=== PATIENT | female | born 1950 | race Caucasian/White ===

== ENCOUNTER 2018-09-24 09:19 | Inpatient (IN) ==
[2018-09-24] MEDS ORDERED: BUPIVACAINE PF 0.25% 10 ML VIAL IJ ONE (09:20)
[2018-09-24] MEDS ORDERED: LIDOCAINE 1% 20 ML VIAL SQ ONE (09:20)
--- NOTE | 2018-09-24 09:44 | Emergency Department Note ---
Upper Extremity HPI - General Chief Complaint: Extremity Injury, Upper Stated Complaint: right arm pain, unable to straighten right arm Time Seen by Provider: 09/24/18 09:42 Source: patient Mode of arrival: ambulatory Limitations: no limitations - History of Present Illness HPI Narrative: This patient has developed pain in her right elbow over the last 24 hours. He is having a lot of difficulty moving the elbow due to pain. No history of injury. She does have a history of gout. No fever chills nausea or vomiting. - Related Data Home Medications Medication Instructions Recorded Confirmed cyclobenzaprine 10 mg tablet 10 mg PO QHS tab 06/02/15 04/25/18 gabapentin 300 mg capsule 300 mg PO QDAY cap 06/02/15 04/25/18 Diclofenac Epolamine [Flector] 1 each TD Q12 08/29/17 04/25/18 ropinirole 0.25 mg tablet 0.25 mg PO TID 11/09/17 04/25/18 ropinirole 1 mg tablet 2 mg PO QHS tab 11/09/17 04/25/18 ropinirole 0.5 mg tablet 0.5 mg PO QDAY tab 04/25/18 04/25/18 Previous Rx's Medication Instructions Recorded omega-3 fatty acids 1,000 mg 1,000 mg PO BID 90 Days #180 cap 11/10/15 capsule albuterol sulfate HFA 90 90 mcg INHALATION Q4H PRN #8.5 g 02/22/16 mcg/actuation aerosol inhaler cholecalciferol (vitamin D3) 2,000 2,000 unit PO QDAY 90 Days #90 cap 09/04/16 unit capsule epinephrine 0.3 mg/0.3 mL 0.3 ml IM ONCE #1 each 12/21/16 injection, auto-injector aspirin 81 mg chewable tablet 81 mg PO ONCE #30 tab 01/11/17 silver sulfadiazine 1 % topical 1 applic TOPICAL BID 14 Days #25 g 01/11/17 cream atorvastatin 80 mg tablet 80 mg PO QHS #90 tab 03/26/18 colchicine 0.6 mg tablet 0.6 mg PO BID #30 tab 05/01/18 pantoprazole 40 mg tablet,delayed 40 mg PO QDAY #90 tab 06/14/18 release amlodipine 10 mg tablet 5 mg PO QDAY #45 tab 07/30/18 oxybutynin chloride 5 mg tablet 5 mg PO BID PRN #180 tab 07/30/18 alendronate 70 mg tablet 70 mg PO QWEEK #12 tab 08/28/18 Allergies Allergy/AdvReac Type Severity Reaction Status Date / Time Tetanus Vaccines and Toxoid Allergy Severe HIVES Verified 04/25/18 13:44 [TETANUS] codeine Allergy Unknown Anaphylaxis Verified 04/25/18 13:44 diazepam [From VALIUM] Allergy Unknown Vomiting Verified 04/25/18 13:44 influenza virus vaccine, Allergy Unknown "I GET THE Verified 04/25/18 13:44 specific FLU" [INFLUENZA VIRUS VACC,SPECIFIC] morphine Allergy Unknown Anaphylaxis Verified 04/25/18 13:44 niacin Allergy Unknown Rash Verified 04/25/18 13:44 penicillin V Allergy Unknown RASH Verified 04/25/18 13:44 BEE STING Allergy Unknown ANAPHYLAXIS Uncoded 04/25/18 13:44 Review of Systems All systems ED: reviewed and negative except as stated. Past Medical History - Past Medical History PMFSH Narrative: Medical History (Last Reviewed 07/30/17 @ 11:25 by Yimi Castro MD) Pseudogout involving multiple joints (Chronic) Allergic to bees (Chronic) Pseudogout (Chronic) Vitamin D deficiency (Chronic) Restless legs syndrome (Chronic) Peripheral neuropathy (Chronic) Osteoporosis (Chronic 08/16/13) Generalized osteoarthritis of unspecified site (Chronic 09/24/13) Migraine (Chronic) Hypertension, essential (Chronic 07/13/14) Hyperlipidemia (Chronic) Hematuria, microscopic (Chronic 04/09/14) Goiter (Chronic 04/09/14) Gastroesophageal reflux (Chronic) COPD (chronic obstructive pulmonary disease) (Chronic) Cerumen impaction (Chronic) Cerebral aneurysm (Chronic) Back spasm (Chronic) ASHD (arteriosclerotic heart disease) (Chronic) Anxiety disorder (Chronic 01/07/14) History of hysterectomy (Chronic) Cellulitis and abscess (Inactive) Cervicalgia (Inactive) Eczema (Inactive) Edema of left foot (Inactive) Family history of malignant neoplasm of breast (Inactive 08/01/13) Hip pain (Inactive) History of hysterectomy (Inactive) Injury of toe on left foot (Inactive) Insomnia (Inactive) Irritability (Inactive 01/07/14) Pain and swelling of left knee (Inactive) Tobacco abuse (Inactive) Past Surgical History (Last Reviewed 07/30/17 @ 11:25 by Yimi Castro MD) History of brain surgery (Chronic) History of eye surgery (Chronic) History of hip surgery (Chronic) History of brain surgery (Inactive) History of eye surgery (Inactive) History of hip surgery (Inactive) History of left cataract surgery (Inactive) Hx of LASIK (Inactive) Status post wrist surgery (Inactive) Family History (Last Reviewed 07/30/17 @ 11:25 by Yimi Castro MD) Mother Malignant neoplasm of breast Malignant neoplasm of colon Unknown Gout Paternal Grandfather Leukemia Brother Migraine Father Acute myocardial infarction Osteoarthritis - Social History smoking status: Current every day smoker Physical Exam The right elbow shows marked decreased range of motion due to pain. She has very minor erythema with some splotches around the elbow and just slight warmth to the elbow. This does not look like gross cellulitis of the skin around the elbow but that is more worrisome for something going on in the joint. Limitations: no limitations General appearance: alert Head: atraumatic Neurological: Present: alert Psychiatric: Present: normal affect Skin: Present: warm, dry, intact, erythema Course Vital Signs Temperature 96.9 F L 09/24/18 09:20 Pulse Rate 78 09/24/18 09:20 Respiratory Rate 20 09/24/18 09:20 Blood Pressure 122/62 09/24/18 09:20 Pulse Oximetry (%) 98 09/24/18 09:20 Temperature 96.9 F L 09/24/18 09:20 Pulse Rate 78 09/24/18 09:20 Respiratory Rate 20 09/24/18 09:20 Blood Pressure 122/62 09/24/18 09:20 Pulse Oximetry (%) 98 09/24/18 09:20 Extremity Injury, Upper - MDM Narrative Medical decision making narrative: Patient's elbow was aspirated by the radiologist of 7 cc of purulent fluid. Cell count was 87,000. She will be admitted to the hospital by Dr. Crisostomo and Dr. Mclaughlin will do surgery on her elbow later today. We will start vancomycin. - Lab Data Lab results reviewed: Yes I reviewed the patient's lab results. Result diagrams: 09/24/18 09:57 09/24/18 09:57 Lab Results 09/24/18 09/24/18 09/24/18 Range/Units 09:57 09:57 10:50 WBC 11.7 H (4.5-11.0) K/mcL RBC 4.25 (4.00-5.20) M/mcL Hgb 12.3 (12.0-15.0) g/dL Hct 38.0 (36.0-48.0) % MCV 89.3 (80.0-100.0) fL MCH 29.0 (26.0-34.0) pg MCHC 32.5 (31.0-36.0) g/dL RDW 14.0 (11.5-14.5) % Plt Count 175 (140-440) K/mcL MPV 9.3 (7.4-10.4) fL Gran % 77.1 (38.0-78.0) % Lymph % (Auto) 15.7 (15.5-49.0) % Will % (Auto) 6.3 (1.0-12.0) % Eos % (Auto) 0.6 (0.0-7.0) % Baso % (Auto) 0.3 (0.0-2.0) % Gran # 9.0 H (1.8-8.0) K/mcL Lymph # (Auto) 1.8 (1.5-4.8) K/mcL Will # (Auto) 0.7 (0.1-0.9) K/mcL Eos # (Auto) 0.1 (0.0-0.7) K/mcL Baso # (Auto) 0 (0.0-0.3) K/mcL ESR 23 H (0-20) mm/hr Sodium 141 (133-145) mmol/L Potassium 3.6 (3.3-5.1) mmol/L Chloride 105 (96-108) mmol/L Carbon Dioxide 26 (22-30) mmol/L Anion Gap 10.0 (8-16) BUN 16 (8-23) mg/dl Creatinine 0.8 (0.6-1.1) mg/dl GFR Calculation 77 Glucose 100 (70-105) mg/dL Uric Acid 6.3 (2.5-8.0) mg/dL Calcium 9.3 (8.6-10.4) mg/dl Total Bilirubin 0.5 (0.0-1.0) mg/dL AST 13 (0-37) U/l ALT 11 (0-40) U/l Alkaline Phosphatase 99 (39-117) U/L C-React Prot High Sens 44.1 H (1.0-3.0) mg/L Total Protein 7.4 (5.9-8.4) gm/dL Albumin 4.1 (3.2-5.2) gm/dL Globulin 3.3 (2.2-3.7) gm/dL Albumin/Globulin Ratio 1.2 (1.0-2.3) Fluid Crystals Ca pyrophosphate (NONE SEEN) Synovial Source Right elbow Synovial Color Pale yellow Synovial Appearance Cloudy Synovial Tot Cell Ct Not Reportable Synovial Nuc Cells 70145 /cumm Synovial Lymphocytes Not Reportable Synovial Other Cells Not Reportable Synovial Diff Comment Not Reportable Synovial Uric Acid (0.0-6.0) mg/dL 09/24/18 Range/Units 10:50 WBC (4.5-11.0) K/mcL RBC (4.00-5.20) M/mcL Hgb (12.0-15.0) g/dL Hct (36.0-48.0) % MCV (80.0-100.0) fL MCH (26.0-34.0) pg MCHC (31.0-36.0) g/dL RDW (11.5-14.5) % Plt Count (140-440) K/mcL MPV (7.4-10.4) fL Gran % (38.0-78.0) % Lymph % (Auto) (15.5-49.0) % Will % (Auto) (1.0-12.0) % Eos % (Auto) (0.0-7.0) % Baso % (Auto) (0.0-2.0) % Gran # (1.8-8.0) K/mcL Lymph # (Auto) (1.5-4.8) K/mcL Will # (Auto) (0.1-0.9) K/mcL Eos # (Auto) (0.0-0.7) K/mcL Baso # (Auto) (0.0-0.3) K/mcL ESR (0-20) mm/hr Sodium (133-145) mmol/L Potassium (3.3-5.1) mmol/L Chloride (96-108) mmol/L Carbon Dioxide (22-30) mmol/L Anion Gap (8-16) BUN (8-23) mg/dl Creatinine (0.6-1.1) mg/dl GFR Calculation Glucose (70-105) mg/dL Uric Acid (2.5-8.0) mg/dL Calcium (8.6-10.4) mg/dl Total Bilirubin (0.0-1.0) mg/dL AST (0-37) U/l ALT (0-40) U/l Alkaline Phosphatase (39-117) U/L C-React Prot High Sens (1.0-3.0) mg/L Total Protein (5.9-8.4) gm/dL Albumin (3.2-5.2) gm/dL Globulin (2.2-3.7) gm/dL Albumin/Globulin Ratio (1.0-2.3) Fluid Crystals (NONE SEEN) Synovial Source Synovial Color Synovial Appearance Synovial Tot Cell Ct Synovial Nuc Cells /cumm Synovial Lymphocytes Synovial Other Cells Synovial Diff Comment Synovial Uric Acid 5.6 (0.0-6.0) mg/dL - Radiology Data Radiology results reviewed: Yes I reviewed the patient's radiology results. Disposition Pt seen by BUSINESS CONTROLLER/PA only: No Clinical Impression: Septic joint of right elbow Disposition: Xfer As Outpt/Obs ([facility]) Condition: Fair Referrals: Casey Pete MD [Primary Care Provider] - Time of Disposition: 13:10
[2018-09-24 10:27] LABS: Basophils # (Auto) 0 K/mcL (0.0-0.3); Basophils % (Auto) 0.3 % (0.0-2.0); Eosinophils # (Auto) 0.1 K/mcL (0.0-0.7); Eosinophils % (Auto) 0.6 % (0.0-7.0); Granulocytes % (Auto) 77.1 % (38.0-78.0); Lymphocytes # (Auto) 1.8 K/mcL (1.5-4.8); Lymphocytes % (Auto) 15.7 % (15.5-49.0); Mean Cell Volume 89.3 fL (80.0-100.0); Mean Corpuscular HGB Conc 32.5 g/dL (31.0-36.0); Monocytes # (Auto) 0.7 K/mcL (0.1-0.9); Monocytes % (Auto) 6.3 % (1.0-12.0); Platelet Count 175 K/mcL (140-440); RBC 4.25 M/mcL (4.00-5.20)
--- NOTE | 2018-09-24 10:29 | XRay Report ---
CLINICAL INFORMATION: Pain with possible fluid COMPARISON: None. FINDINGS: A large effusion distends both the anterior and posterior extrasynovial fat pads. No osseous abnormalities. Mild diffuse soft tissue swelling noted IMPRESSION: Large elbow effusion. This could be posttraumatic, infectious or inflammatory arthritis. Fluoroscopic guided aspiration be performed Interpreted and Authenticated by: Shad Francois 09/24/18
[2018-09-24 10:49] LABS: ALT/SGPT 11 U/l (0-40); Albumin 4.1 gm/dL (3.2-5.2); Albumin/Globulin Ratio 1.2 (1.0-2.3); Alkaline Phosphatase 99 U/L (39-117); Blood Urea Nitrogen 16 mg/dl (8-23); Uric Acid 6.3 mg/dL (2.5-8.0)
[2018-09-24 11:00] LABS: CRP,High Sensitivity 44.1 mg/L (1.0-3.0)
[2018-09-24 11:14] LABS: Erythrocyte Sedimentation Rate 23 mm/hr (0-20)
--- NOTE | 2018-09-24 11:50 | XRay Report ---
CLINICAL INFORMATION: Acute right elbow pain with large effusion seen on accompanying plain film COMPARISON: Elbow films 09/24/2018. TECHNIQUE: The procedure and risks including possibility of bleeding and infection were explained to patient. She understood and wished to proceed. With the patient prone on fluoroscopy table, the right elbow was flexed at 90 degrees and the skin overlying the lateral radiocapitellar joint was fluoroscopic marked, prepped and locally anesthetized with 1% lidocaine using a 25-gauge needle. A 20-gauge needle was then advanced under fluoroscopic guidance into the radiocapitellar portion of the elbow joint. Approximately 7 cc of purulent fluid was aspirated and sent for requested studies. Approximately 8 cc of 0.25% bupivacaine was then injected into the elbow which immediately relieved her pain. IMPRESSION: Successful fluoroscopic guided aspiration of the elbow yielding 7 cc of purulent fluid. This was sent to laboratory for requested studies. 8 cc of 0.25% bupivacaine was injected providing immediate pain relief. Interpreted and Authenticated by: Shad Francois 09/24/18
[2018-09-24 12:42] LABS: Appearance,Synovial Fluid CLOUDY; Color,Synovial Fluid PALE YELLOW
[2018-09-24 13:08] LABS: Crystals,Body Fluid CA PYROPHOSPHATE (NONE SEEN)
[2018-09-24] MEDS ORDERED: VANCOMYCIN 1,500 MG in 0.9 % SODIUM CHLORIDE 500 ML IV ONE (13:09)
[2018-09-24 13:17] LABS: Neutrophils,Synovial Fluid 91 % (0-25); Other Cells,Synovial Fluid 9 %
--- NOTE | 2018-09-24 13:19 | Internal Med History&Physical ---
Medical - H&P: [facility] Patient information: Note initiated : 09/24/18 at 1:16 pm Service Date, if different from initiated Date: [] Patient: Carly Yadav a 67 y/o F admitted on for right arm pain, unable to straighten right arm. Chief Complaint: [] Chief complaint: rt elbow pain and swelling History of present illness: Ms. Yadav is a 67 year old F who [facility] with worsening right elbow swelling and pain that started since last evening. Patient denies any recent injury, fall. She carries a history of gout. Patient has 4 dogs and cat but denies any recent scratching or bite. The redness and swelling rapidly evolved overnight prompting her to come to the ER. Initial workup was significant for left elbow effusion on imaging. Purulent aspirate was obtained. Subsequently orthopedics was consulted for joint washout in light of septic arthritis right elbow. Hospitalist service was consulted for management of antibiotics and assist in admission. Patient will be taken directly to the OR Patient was seen postoperatively after joint washout on the medical floor. She denies active distress including chest pain shortness of breath, headache photophobia joint pain. She denies prior similar events are recurrent boils or MRSA infection. She lives with her boyfriend. Review of systems 10 point review of system was performed and is negative except for one discussed above Medical - H&P: [facility] Medical history: Pseudogout involving multiple joints (Chronic) Allergic to bees (Chronic) Pseudogout (Chronic) Knee aspirate showed calcium pyrophosphate crystals, report ws reported 107 days late. pt symptoms abated. Vitamin D deficiency (Chronic) Restless legs syndrome (Chronic) Peripheral neuropathy (Chronic) 09/09/14-Dr Hollis Osteoporosis (Chronic 08/16/13) Generalized osteoarthritis of unspecified site (Chronic 09/24/13) Migraine (Chronic) Hypertension, essential (Chronic 07/13/14) Hyperlipidemia (Chronic) Hematuria, microscopic (Chronic 04/09/14) Goiter (Chronic 04/09/14) Multinodular, tsh wnl Gastroesophageal reflux (Chronic) COPD (chronic obstructive pulmonary disease) (Chronic) Cerumen impaction (Chronic) Cerebral aneurysm (Chronic) Back spasm (Chronic) ASHD (arteriosclerotic heart disease) (Chronic) 06/07/14-Dr Hurst Anxiety disorder (Chronic 01/07/14) Cellulitis and abscess (Inactive) Left leg, DVT Scan neg, on bactrim Cervicalgia (Inactive) Eczema (Inactive) Edema of left foot (Inactive) due to cellutitis, DVT checked and is neg, Family history of malignant neoplasm of breast (Inactive 08/01/13) Hip pain (Inactive) Injury of toe on left foot (Inactive) pain management, get x ray to r/o fracture. Insomnia (Inactive) Irritability (Inactive 01/07/14) Pain and swelling of left knee (Inactive) new onsent joint effusion, check cultures, cell count, and crytals, given severe pain, we tappend the knee, the fluid was clear and mildy opaque, not turbid, hence kennalog 40mg and 2 cc lidocaine was injected in the left knee. x ray ordered Tobacco abuse (Inactive) Surgical history: History of brain surgery (Chronic) History of eye surgery (Chronic) left x 3 History of hip surgery (Chronic) right x 2 History of hysterectomy (Chronic) anuersym History of brain surgery (Inactive) 11/2010 Brain aneurysm History of eye surgery (Inactive) Left eye macular hole History of hip surgery (Inactive) 2001 Right hip History of hysterectomy (Inactive) 1985 History of left cataract surgery (Inactive) Hx of LASIK (Inactive) Status post wrist surgery (Inactive) 2010 Right wrist Pertinent family history: Mother Malignant neoplasm of breast Malignant neoplasm of colon Unknown Gout Paternal Grandfather Leukemia Brother Migraine Father Acute myocardial infarction Osteoarthritis Social history: marital status: occupational status: disabled smoking status: Current every day smoker tobacco type: cigarettes per day: 10 pack-years: 35 alcohol intake frequency: does not drink substance use type: does not use Medical - H&P: Meds Home Medications Medication Instructions Recorded Confirmed Type Alendronate Sodium 70 mg PO WEEKLY 09/24/18 09/24/18 History Aspirin [Aspirin EC] 81 mg PO DAILY 09/24/18 09/24/18 History Atorvastatin Calcium 80 mg PO QHS 09/24/18 09/24/18 History Cyclobenzaprine [Flexeril] 10 mg PO HSP PRN 09/24/18 09/24/18 History Gabapentin [Neurontin] 300 mg PO HS 09/24/18 09/24/18 History Oxybutynin Chloride [Ditropan Xl] 5 mg PO BID 09/24/18 09/24/18 History Pantoprazole Sodium [Protonix] 40 mg PO DAILY 09/24/18 09/24/18 History amLODIPine [Norvasc] 10 mg PO DAILY 09/24/18 09/24/18 History rOPINIRole [Requip] 1 mg PO .COMPLEX 09/24/18 09/24/18 History Allergies Allergy/AdvReac Type Severity Reaction Status Date / Time bee venom protein (honey bee) Allergy Severe Anaphylaxis Verified 09/24/18 16:25 codeine Allergy Severe Anaphylaxis Verified 09/24/18 16:25 morphine Allergy Severe Anaphylaxis Verified 09/24/18 16:25 niacin Allergy Mild Rash Verified 09/24/18 16:25 penicillin V Allergy Mild RASH Verified 09/24/18 16:25 Tetanus Vaccines and Toxoid Allergy Mild HIVES Verified 09/24/18 16:25 [TETANUS] diazepam [From VALIUM] AdvReac Mild Vomiting Verified 09/24/18 16:25 influenza virus vaccine, AdvReac Mild "I GET THE Verified 09/24/18 16:25 specific FLU" [INFLUENZA VIRUS VACC,SPECIFIC] Medical - H&P: Exam - Constitutional Vitals: Temp Pulse Resp BP Pulse Ox 96.9 F L 78 20 122/62 98 09/24/18 09:20 09/24/18 09:20 09/24/18 09:20 09/24/18 09:20 09/24/18 09:20 General appearance: no acute distress, thin Exam: Eye movements symmetrical Head normocephalic oral cavity dry No ear nose discharge No lymphadenopathy S1-S2 regular rhythm no murmur chest clear to auscultation bilaterally Abdomen soft nontender Right upper extremity elbow redness and swelling now postoperative dressing Lower extremity no cyanosis clubbing Skin no suspicious lesion Psych alert cooperative Neuro nonfocal Medical - H&P: Reslt - Labs CBC & Chem 7: 09/24/18 09:57 09/24/18 09:57 Labs: Short CBC 09/24/18 Range/Units 09:57 WBC 11.7 H (4.5-11.0) K/mcL Hgb 12.3 (12.0-15.0) g/dL Hct 38.0 (36.0-48.0) % Plt Count 175 (140-440) K/mcL BMP 09/24/18 09:57 Sodium 141 Potassium 3.6 Chloride 105 Carbon Dioxide 26 BUN 16 Creatinine 0.8 Glucose 100 Calcium 9.3 Liver Function 09/24/18 Range/Units 09:57 Total Bilirubin 0.5 (0.0-1.0) mg/dL AST 13 (0-37) U/l ALT 11 (0-40) U/l Alkaline Phosphatase 99 (39-117) U/L Albumin 4.1 (3.2-5.2) gm/dL Medical - H&P: A/P (1) Septic joint of right elbow Current visit: Yes Status: Acute * Septic arthritis right elbow-status post aspiration/joint washout. Await Gram stain cultures and crystal evaluation. Started on empiric Rocephin/vancomycin . Infectious disease consulted. * Pain management cont as needed opioids * Restless leg syndrome continue home dose ropinirole * Neuropathy on gabapentin * History of gout * Full code * Prophylaxis heparin Plan * Review post joint washout * Await crystals and culture Gram stain * Empiric antibiotic coverage on Rocephin/vancomycin until further recommendations from ID * Prior medical condition management as above * Inpatient admission
--- NOTE | 2018-09-24 13:53 | XRay Report ---
CLINICAL INFORMATION: pre op COMPARISON: None. FINDINGS: The heart size, mediastinum and pulmonary vessels are unremarkable. Stable COPD and and lingular scarring noted. No infiltrates or other new pulmonary abnormalities. There are no effusions. The bones and soft tissues are within normal limits. IMPRESSION: COPD - no acute disease. Interpreted and Authenticated by: Shad Francois 09/24/18
[2018-09-24] MEDS: LACTATED RINGERS 1,000 ML IV SCH ×2 (14:27→20:10)
[2018-09-24] MEDS ORDERED: ONDANSETRON 4 MG/2 ML VIAL IV ONE (15:20)
[2018-09-24] MEDS ORDERED: GLYCOPYRROLATE 0.2 MG/ML VIAL IV ONE (15:20)
[2018-09-24] MEDS ORDERED: MIDAZOLAM 2 MG/2 ML VIAL IV ONE (15:20)
[2018-09-24] MEDS ORDERED: LIDOCAINE HCL/PF 100 MG/5 ML SYRINGE IV ONE (15:20)
[2018-09-24] MEDS ORDERED: fentaNYL 100 MCG/2 ML VIAL IV ONE (15:20)
[2018-09-24] MEDS ORDERED: KETAMINE 100 MG/ML ML IV ONE (15:20)
[2018-09-24] MEDS ORDERED: PROPOFOL 200 MG/20 ML VIAL IV ONE (15:20)
--- NOTE | 2018-09-24 15:52 | Brief Operative Note ---
Date of procedure: 09/24/18 Pre-op diagnosis: Septic right elbow Post-op diagnosis: same Procedure: Arthrotomy with irrigation and drainage of right elbow septic joint Grafts/Implants: No Anesthesia: GLMA Findings: large cloudy joint effusion Complications: none Surgeon: Myron Mclaughlin Roofer Helper Vinyl Coating: Ross Jain Estimated blood loss (cc): 5 Specimens Removed/Pathology: other (joint fluid cx and sens) Condition: stable Disposition: PACU
[2018-09-24] MEDS ORDERED: oxyCODONE HCL 5 MG TABLET PO PRN (15:55)
[2018-09-24] MEDS ORDERED: PROMETHAZINE 25 MG/ML VIAL IM PRN (16:16)
[2018-09-24] MEDS ORDERED: MEPERIDINE 50 MG/ML INJECTION IM PRN (16:16)
[2018-09-24] MEDS ORDERED: IPRATROPIUM/ALBUTEROL 3 ML AMPUL.NEB NEB PRN (16:16)
[2018-09-24] MEDS ORDERED: MEPERIDINE 25 MG/ML SYRINGE IV PRN (16:16)
[2018-09-24] MEDS ORDERED: fentaNYL 100 MCG/2 ML VIAL IV PRN (16:16)
--- NOTE | 2018-09-24 16:24 | Operative Note ---
DATE OF OPERATION: 09/24/2018 PREOPERATIVE DIAGNOSIS: Septic right elbow joint. POSTOPERATIVE DIAGNOSIS: Septic right elbow joint. PROCEDURE PERFORMED: Arthrotomy with irrigation and drainage of right septic elbow joint. SURGEON: Myron Mclaughlin M.D. TELECOMMUNICATIONS OPERATOR: Betito Jain PA-C. ANESTHESIA: General. DRAINS: A small Elneo. SPECIMENS: Culture and sensitivity. COMPLICATIONS: None. POSTOPERATIVE CONDITION: Stable. INDICATIONS FOR SURGERY: This is a 67-year-old female who yesterday began having rapidly increasing right elbow pain and limited movement. She presented today to the ER with elevated white blood cell count and redness. The elbow was aspirated which showed a white blood cell count of 87,000 making this highly suspicious for septic elbow joint. FINDINGS AT SURGERY: There was cloudy fluid, copious amounts in the joint consistent with a septic arthritis. PROCEDURE IN DETAIL: The patient had been seen preoperatively and informed consent had been obtained after discussion of risks and benefits of surgery. Risks including, but not limited to, bleeding; continued infection; injury to nerves, blood vessels, and other surrounding structures; anesthetic risks; incomplete or no resolution of symptoms; possibility of needing further washouts or surgery; possibly also developing stiffness and post-infectious arthritis. She understood these risks and wished to proceed. Correct operative site was marked in preop holding and patient was taken to the operating room. General anesthesia induced. The right upper extremity was carefully prepped and draped in normal sterile fashion. Time out was performed verifying patient name, operative site, and plan. Esmarch was used to exsanguinate the extremity and tourniquet was inflated to 250 mmHg. A lateral Mejia approach was used to the elbow with a 15 blade scalpel, starting lateral epicondyle and extending obliquely down towards the proximal ulna. She was taken through skin and subcutaneous tissue. Hemostasis obtained with Bovie cautery. We then identified the interval between the anconeus and the extensor carpi ulnaris and incised with a 15 blade scalpel. Upon entering the joint, we immediately noted a large egress of cloudy fluid. Culture swab was used to take culture and sensitivity. We then moved the elbow, flexing and extending and supinating and pronating and continued to express out a large amount of fluid. Once it seemed the fluid stopped coming out, we then used pulse lavage and irrigated, flexing and extending the elbow and supinating and pronating while irrigating. We did a couple of liters, and then a small Eleno drain was placed into the joint. We then used an 0 Monocryl interrupted [id number] to close the capsule, carefully making sure we did not entrap the Mcgee with the stitches, and then used a 3-0 Monocryl for subcutaneous and a 4-0 nylon for skin. Xeroform and sterile dressing were applied. The patient was then awakened, extubated, and transferred to recovery in stable condition. LOREN:lourdes Job ID: [id number] Doc ID: [id number] Myron Mclaughlin MD
[2018-09-24] MEDS ORDERED: LACTATED RINGERS 1,000 ML IV SCH (16:30)
--- NOTE | 2018-09-24 16:39 | Consultation ---
DATE OF CONSULTATION: 09/24/2018 REQUESTING PHYSICIAN: Erik De Paz M.D. CONSULTING PHYSICIAN: Myron Mclaughlin M.D. CHIEF COMPLAINT: Right elbow pain and swelling. REASON FOR CONSULTATION: Possible septic elbow. HISTORY OF PRESENT ILLNESS: This is a 67-year-old female who started having pain in her right elbow about 24 hours ago. She had no injury and no other febrile illness. She had rapidly worsening pain as well as visible redness and limited range of motion. She presented to the ER today with these symptoms. She was noted to have elevated white blood cell count in her blood of 11.7. Interventional Radiology then aspirated the elbow and sent the fluid off which showed a white blood cell count in the fluid of 87,000 as well as elevated inflammatory markers. I was then consulted for possible septic elbow. PAST MEDICAL HISTORY: Appears to be quite extensive, including pseudogout, restless leg, hypertension, gastroesophageal reflux, COPD, anxiety. PAST SURGICAL HISTORY: Brain surgery, eye surgery x3, hip surgery x2, hysterectomy, brain aneurysm surgery, left hip surgery, cataract surgery and a right wrist surgery. MEDICATIONS: Her medication list is extensive. Please see the chart for complete list. ALLERGIES: Numerous, includin. CODEINE. 2. VALIUM. 3. MORPHINE. 4. NIACIN. 5. PENICILLIN. 6. BEE STINGS. SOCIAL HISTORY: She is and disabled. She smokes every day, sounds like ten cigarettes a day for 35 years. Denies alcohol use. FAMILY HISTORY: Positive for mother with colon and breast cancer. Father with heart disease and arthritis. REVIEW OF SYSTEMS: Negative for fever or chills, chest pain, shortness of breath, loss of consciousness, bloody stool or urine. PHYSICAL EXAMINATION: VITAL SIGNS ON ADMISSION: Temperature 96.9, pulse 78, respirations 20, blood pressure 122/62, pulse 98. GENERAL: She appears her stated age in no acute distress. She is oriented to person, place. Mood and affect are reasonably appropriate. EXTREMITIES: Her left elbow is normal to inspection, range of motion, stability and strength. Right elbow shows obvious swelling and erythema on skin exam. She has limited range of motion secondary to pain. She has normal stability. Strength is 4/5. Radial pulse is 2+. Sensation to light touch is grossly intact. LABORATORY DATA: Laboratory values again showed a white blood cell count 11.7. ESR 23. IMPRESSION: Probable septic right elbow joint in a 67-year-old female. However, differential diagnosis to include pseudogout as well. PLAN: Due to the very high elevation of her cell count in the joint fluid and her elevated white blood cell count and limited motion and redness, I think this is most likely a septic arthritis. Due to the risk of post-infectious arthritis with septic joint, I recommend urgent irrigation and debridement of the septic elbow joint. Risks include, but not limited to, bleeding; infection; injury to nerves, blood vessels, other surrounding structures; anesthetic risks; incomplete or no resolution of symptoms; possibility of needing further washouts or surgery; possibility of stiffness, pain and post-infectious arthritis. She understands and wishes to proceed. BJHyacinth:lourdes Job ID: [id number] Doc ID: [id number] Myron Mclaughlin MD
[2018-09-24] MEDS ORDERED: ONDANSETRON 4 MG/2 ML VIAL IV PRN (17:30)
[2018-09-24] MEDS ORDERED: cefTRIAXone 2 GM in DEXTROSE 5% IN WATER 50 ML IV SCH (17:30)
[2018-09-24] MEDS ORDERED: CYCLOBENZAPRINE 10 MG TABLET PO PRN (17:30)
[2018-09-24] MEDS ORDERED: ACETAMINOPHEN 1,000 MG/100 ML BOTTLE IV PRN (17:30)
[2018-09-24] MEDS ORDERED: POTASSIUM CHLORIDE 20 MEQ PACKET PO PRN (17:30)
[2018-09-24] MEDS ORDERED: HYDROmorphone 2 MG/ML VIAL IV PRN (17:30)
[2018-09-24] MEDS ORDERED: traZODone HCL 50 MG TABLET PO PRN (17:30)
[2018-09-24] MEDS ORDERED: VANCOMYCIN PER PHARMACY IV SCH (17:30)
[2018-09-24 18:43] LABS: C-Reactive Protein 3.9 mg/dl (0.0-0.8)
[2018-09-24] MEDS ORDERED: VANCOMYCIN 1,000 MG in 0.9 % SODIUM CHLORIDE 250 ML IV SCH (19:00)
[2018-09-24] MEDS: 0.9 % SODIUM CHLORIDE 1,000 ML IV SCH ×2 (20:09→21:55)
[2018-09-24] MEDS: 0.9 % SODIUM CHLORIDE 10 ML SYRINGE IV SCH ×2 (20:09→21:00)
[2018-09-24] MEDS: ATORVASTATIN 20 MG TABLET PO SCH (20:58)
[2018-09-24] MEDS: SENNOSIDES/DOCUSATE SODIUM 1 TAB TABLET PO SCH (20:58)
[2018-09-24] MEDS: DOCUSATE SODIUM 100 MG CAPSULE PO SCH (20:58)
[2018-09-24] MEDS: rOPINIRole 1 MG TABLET PO SCH (20:59)
[2018-09-24] MEDS: oxyCODONE HCL 5 MG TABLET PO PRN (20:59)
[2018-09-24] MEDS: GABAPENTIN 300 MG CAPSULE PO SCH (20:59)
[2018-09-24] MEDS: OXYBUTYNIN CHLORIDE 5 MG TAB.XL.24H PO SCH (20:59)
[2018-09-24] MEDS: ceFAZolin 1 GM VIAL IV SCH (21:00)
[2018-09-24] MEDS: ACETAMINOPHEN 325 MG TABLET PO PRN (21:58)
[2018-09-25] MEDS: ACETAMINOPHEN 325 MG TABLET PO PRN ×4 (02:11→18:40)
[2018-09-25] MEDS: oxyCODONE HCL 5 MG TABLET PO PRN ×4 (02:11→18:40)
[2018-09-25] MEDS: 0.9 % SODIUM CHLORIDE 10 ML SYRINGE IV SCH ×3 (05:55→21:36)
[2018-09-25] MEDS: ceFAZolin 1 GM VIAL IV SCH ×3 (05:55→21:28)
[2018-09-25 06:24] LABS: Mean Cell Volume 89.6 fL (80.0-100.0); Mean Corpuscular HGB Conc 32.7 g/dL (31.0-36.0); Platelet Count 147 K/mcL (140-440); RBC 3.73 M/mcL (4.00-5.20); Red Cell Distribution Width 14.1 % (11.5-14.5)
[2018-09-25 06:48] LABS: ALT/SGPT 8 U/l (0-40); Albumin 3.1 gm/dL (3.2-5.2); Albumin/Globulin Ratio 1.1 (1.0-2.3); Alkaline Phosphatase 77 U/L (39-117); Bilirubin,Direct < 0.2 mg/dL (0.0-0.3); Blood Urea Nitrogen 7 mg/dl (8-23); C-Reactive Protein 4.5 mg/dl (0.0-0.8); Gamma Glutamyl Transpeptidase 18 U/L (5-36); Uric Acid 4.5 mg/dL (2.5-8.0)
[2018-09-25] MEDS: PANTOPRAZOLE 40 MG TABLET PO SCH (07:10)
[2018-09-25 07:36] LABS: Erythrocyte Sedimentation Rate 21 mm/hr (0-20)
--- NOTE | 2018-09-25 07:38 | Orthopedic Progress Note ---
Orthopedics - Auxillary Note - Subjective Patient Information: Note initiated : 09/25/18 at 7:36 am Service Date, if different from initiated Date: [] Patient: Carly Yadav 67 y/o F admitted on 09/24/18 for right arm pain, unable to straighten right arm. Chief Complaint: Swollen hand, otherwise doing well. bandages c/d/i nvi-distal Vital Signs Temp Pulse Pulse Resp BP BP Pulse Ox 09/25/18 03:20 98.3 F 74 14 130/68 95 09/24/18 23:49 98.3 F 72 14 124/64 94 09/24/18 20:57 98.2 F 67 16 141/75 100 09/24/18 20:32 66 135/70 100 09/24/18 18:24 72 120/62 97 09/24/18 18:01 83 136/86 89 L 09/24/18 17:32 66 140/62 94 09/24/18 17:21 68 153/69 95 09/24/18 17:03 74 139/70 95 09/24/18 16:53 97.5 F 82 16 166/84 100 09/24/18 16:38 97.8 F 75 16 161/73 100 09/24/18 16:23 97.6 F 77 17 136/70 100 09/24/18 16:18 81 14 132/64 100 09/24/18 16:13 81 13 128/62 100 09/24/18 16:08 98.1 F 85 13 113/59 100 09/24/18 13:54 97.9 F 65 20 125/68 100 09/24/18 09:20 96.9 F L 78 20 122/62 98 Intake and Output 09/24/18 09/25/18 09/25/18 21:59 05:59 13:59 Intake Total 1590 550 Output Total 1253 450 Balance 337 100 Intake: IV 750 Lactated Ringers 1,000 ml @ 20 750 mls/hr IV .Q24H [facility] Rx#: [id number] Oral 840 550 Output: Void Amount 1250 450 Estimated Blood Loss 3 Other: Meal Dinner Percent of Meal Consumed 50% Feeding Ability Independent Urine Appearance Clear Urine Color Straw Urine Odor Normal Weight 127 lb Laboratory Results - last 24 hr 09/24/18 09/24/18 09/24/18 09:57 09:57 10:50 WBC 11.7 H RBC 4.25 Hgb 12.3 Hct 38.0 MCV 89.3 MCH 29.0 MCHC 32.5 RDW 14.0 Plt Count 175 MPV 9.3 Gran % 77.1 Lymph % (Auto) 15.7 [place] % (Auto) 6.3 Eos % (Auto) 0.6 Baso % (Auto) 0.3 Gran # 9.0 H Lymph # (Auto) 1.8 [place] # (Auto) 0.7 Eos # (Auto) 0.1 Baso # (Auto) 0 Band Neutrophils % ESR 23 H Sodium 141 Potassium 3.6 Chloride 105 Carbon Dioxide 26 Anion Gap 10.0 BUN 16 Creatinine 0.8 GFR Calculation 77 Glucose 100 Uric Acid 6.3 Calcium 9.3 Phosphorus Magnesium Total Bilirubin 0.5 Direct Bilirubin GGT AST 13 ALT 11 Alkaline Phosphatase 99 Lactate Dehydrogenase C-Reactive Protein C-React Prot High Sens 44.1 H Total Protein 7.4 Albumin 4.1 Globulin 3.3 Albumin/Globulin Ratio 1.2 Triglycerides Fluid Crystals Ca pyrophosphate Synovial Source Right elbow Synovial Color Pale yellow Synovial Appearance Cloudy Synovial Tot Cell Ct 100 Synovial Nuc Cells 12170 Synovial Neutrophils 91 H Synovial Lymphocytes Not Reportable Synovial Other Cells 9 Synovial Diff Comment Not Reportable Synovial Uric Acid 09/24/18 09/24/18 09/24/18 10:50 10:50 16:10 WBC RBC Hgb Hct MCV MCH MCHC RDW Plt Count MPV Gran % Lymph % (Auto) [place] % (Auto) Eos % (Auto) Baso % (Auto) Gran # Lymph # (Auto) [place] # (Auto) Eos # (Auto) Baso # (Auto) Band Neutrophils % ESR Sodium Potassium Chloride Carbon Dioxide Anion Gap BUN Creatinine GFR Calculation Glucose Uric Acid Calcium Phosphorus Magnesium Total Bilirubin Direct Bilirubin GGT AST ALT Alkaline Phosphatase Lactate Dehydrogenase C-Reactive Protein C-React Prot High Sens Total Protein Albumin Globulin Albumin/Globulin Ratio Triglycerides Fluid Crystals TNP Not Reportable Synovial Source Synovial Color Synovial Appearance Synovial Tot Cell Ct Synovial Nuc Cells Synovial Neutrophils Synovial Lymphocytes Synovial Other Cells Synovial Diff Comment Synovial Uric Acid 5.6 09/24/18 09/25/18 09/25/18 17:50 05:05 05:05 WBC 11.1 H RBC 3.73 L Hgb 10.9 L Hct 33.4 L MCV 89.6 MCH 29.3 MCHC 32.7 RDW 14.1 Plt Count 147 MPV 9.8 Gran % Lymph % (Auto) [place] % (Auto) Eos % (Auto) Baso % (Auto) Gran # Lymph # (Auto) [place] # (Auto) Eos # (Auto) Baso # (Auto) Band Neutrophils % Not Reportable ESR Sodium 139 Potassium 3.5 Chloride 107 Carbon Dioxide 20 L Anion Gap 12.0 BUN 7 L Creatinine 0.7 GFR Calculation 90 Glucose 104 Uric Acid 4.5 Calcium 8.1 L Phosphorus 2.5 L Magnesium 1.6 Total Bilirubin 0.5 Direct Bilirubin < 0.2 GGT 18 AST 14 ALT 8 Alkaline Phosphatase 77 Lactate Dehydrogenase 201 C-Reactive Protein 3.9 H 4.5 H C-React Prot High Sens Total Protein 6.0 Albumin 3.1 L Globulin 2.9 Albumin/Globulin Ratio 1.1 Triglycerides 65 Fluid Crystals Synovial Source Synovial Color Synovial Appearance Synovial Tot Cell Ct Synovial Nuc Cells Synovial Neutrophils Synovial Lymphocytes Synovial Other Cells Synovial Diff Comment Synovial Uric Acid s/p R elbow I&D-stable Pt okay to discharge per ortho once cleared by Hospitalist and appropriate abx started. f/u at [facility] in 2 weeks. Daily dry dressing changes. Non-weightbearing on the R UE.
[2018-09-25] MEDS: rOPINIRole 1 MG TABLET PO SCH ×3 (08:27→21:22)
[2018-09-25] MEDS: DOCUSATE SODIUM 100 MG CAPSULE PO SCH ×2 (08:27→21:22)
[2018-09-25] MEDS: ASPIRIN 81 MG TAB.CHEW PO SCH (08:28)
[2018-09-25] MEDS: OXYBUTYNIN CHLORIDE 5 MG TAB.XL.24H PO SCH ×2 (08:28→21:22)
[2018-09-25] MEDS: MULTIVIT,THER IRON,CA,FA & MIN 1 TABLET PO SCH (08:28)
[2018-09-25] MEDS: amLODIPine 10 MG TABLET PO SCH (08:28)
[2018-09-25 09:16] LABS: Band Neutrophils % 2 % (0-10); Lymphocytes % 8 % (15-49); Monocytes % (Manual) 3 % (1-12); Platelet Estimate NORMAL (NORMAL); RBC Morphology NORMAL (NORMAL); Segmented Neutrophils % 87 % (38-78)
--- NOTE | 2018-09-25 09:40 | Internal Med Progress Note ---
Medical - PN: Subj Patient information: Note initiated : 09/25/18 at 9:37 am Service Date, if different from initiated Date: [] Patient: Carly Yadav a 67 y/o F admitted on 09/24/18 for right arm pain, unable to straighten right arm. Chief Complaint: [] Interval history: Ms. Yadav is a 67 year old F who presents to [place] ER with worsening right elbow swelling and pain that started since last evening. Patient denies any recent injury, fall. She carries a history of gout. Patient has 4 dogs and cat but denies any recent scratching or bite. The redness and swelling rapidly evolved overnight prompting her to come to the ER. Initial workup was significant for left elbow effusion on imaging. Purulent aspirate was obtained. Subsequently orthopedics was consulted for joint washout in light of septic arthritis right elbow. Hospitalist service was consulted for management of antibiotics and assist in admission. Patient will be taken directly to the OR Patient was seen postoperatively after joint washout on the medical floor. She denies active distress including chest pain shortness of breath, headache photophobia joint pain. She denies prior similar events are recurrent boils or MRSA infection. She lives with her boyfriend. 09/25-patient doing well postoperatively. Right elbow dressing in place. No overnight events including fever chills or worsening pain. Microbiology cultures negative so far. On empiric vancomycin/cefazolin as per orthopedics. Await ID recommendations. - Constitutional Vitals: Vital Signs Temp Pulse Resp BP Pulse Ox 98.6 F 61 14 97/60 94 09/25/18 07:57 09/25/18 07:57 09/25/18 07:57 09/25/18 07:57 09/25/18 07:57 Period Temp Pulse Resp BP Sys/Alexander Pulse Ox Last 24 Hr 97.5 F-98.6 F 61-85 13-20 97-166/59-86 89-100 Intake and Output 09/24/18 09/25/18 09/25/18 21:59 05:59 13:59 Intake Total 1590 550 240 Output Total 1253 450 Balance 337 100 240 Weight 127 lb Intake & Output: Intake & Output 09/24/18 09/25/18 09/25/18 21:59 05:59 13:59 Intake Total 1590 550 240 Output Total 1253 450 Balance 337 100 240 Weight 127 lb Intake: IV 750 Lactated Ringers 1,000 ml @ 20 750 mls/hr IV .Q24H [facility] Rx#: [id number] Oral 840 550 240 Output: Void Amount 1250 450 Estimated Blood Loss 3 Other: Meal Dinner Percent of Meal Consumed 50% Feeding Ability Independent Urine Appearance Clear Urine Color Straw Urine Odor Normal General appearance: no acute distress Exam: Alert oriented Nonlabored breathing, no anxiety Right elbow dressing arm in sling Nondistended abdomen Medical - PN: Obj Da - Labs CBC & Chem 7: 09/25/18 05:05 09/25/18 05:05 Labs: Abnormal Lab Results 09/25/18 09/25/18 09/24/18 05:05 05:05 17:50 WBC 11.1 H RBC 3.73 L Hgb 10.9 L Hct 33.4 L Gran # Seg Neutrophils % 87 H Lymphocytes % 8 L ESR 21 H Carbon Dioxide 20 L BUN 7 L Calcium 8.1 L Phosphorus 2.5 L C-Reactive Protein 4.5 H 3.9 H C-React Prot High Sens Albumin 3.1 L Synovial Neutrophils 09/24/18 09/24/18 09/24/18 10:50 09:57 09:57 WBC 11.7 H RBC Hgb Hct Gran # 9.0 H Seg Neutrophils % Lymphocytes % ESR 23 H Carbon Dioxide BUN Calcium Phosphorus C-Reactive Protein C-React Prot High Sens 44.1 H Albumin Synovial Neutrophils 91 H Meds: Medications Acetaminophen (Tylenol) 650 mg PO Q4-6HP PRN PRN Reason: PAIN/FEVER > 101 Last Admin: 09/25/18 05:52 Dose: 650 mg Documented by: Alendronate Sodium (Fosamax) 70 mg PO WEEKLY [facility] Amlodipine Besylate (Norvasc) 10 mg PO DAILY [facility] Last Admin: 09/25/18 08:28 Dose: 10 mg Documented by: Aspirin (Aspirin) 81 mg PO DAILY [facility] Last Admin: 09/25/18 08:28 Dose: 81 mg Documented by: Atorvastatin Calcium (Lipitor) 80 mg PO [facility] Last Admin: 09/24/18 20:58 Dose: 80 mg Documented by: Cefazolin Sodium (Ancef) 2 gm IV Q8H [facility] Cyclobenzaprine HCl (Flexeril) 10 mg PO HSP PRN PRN Reason: Back Pain Last Admin: 09/24/18 20:58 Dose: 10 mg Documented by: Docusate Sodium (Colace) 100 mg PO BID [facility] Last Admin: 09/25/18 08:27 Dose: 100 mg Documented by: Gabapentin (Neurontin) 300 mg PO HS [facility] Last Admin: 09/24/18 20:59 Dose: 300 mg Documented by: Heparin Sodium (Porcine) (Heparin) 5,000 unit SQ Q12 [facility] Hydromorphone HCl (Dilaudid) 0 mg IV Q4HP PRN PRN Reason: PAIN LEVEL > 6 Sodium Chloride (Sodium Chloride 0.9%) 1,000 mls @ 50 mls/hr IV .Q20H [facility] Stop: 09/27/18 05:29 Last Admin: 09/24/18 21:55 Dose: 50 mls/hr Documented by: Acetaminophen (Ofirmev) 1,000 mg in 100 mls @ 200 mls/hr IV Q6HP PRN PRN Reason: PAIN/FEVER > 101 Vancomycin HCl 1,000 mg/ (Sodium Chloride) 250 mls @ 250 mls/hr IV Q24H [facility] Iron Carb/Multivit/[place]/Folic Acid (Multivitamin W/Minerals) 1 tab PO DAILY [facility] Last Admin: 09/25/18 08:28 Dose: 1 tab Documented by: Ondansetron HCl (Zofran) 4 mg IV Q4-6HP PRN PRN Reason: Nausea And Vomiting Oxybutynin Chloride (Ditropan Xl) 5 mg PO BID [facility] Last Admin: 09/25/18 08:28 Dose: 5 mg Documented by: Oxycodone HCl (Roxicodone) 5 mg PO Q4HP PRN PRN Reason: Pain Last Admin: 09/25/18 05:52 Dose: 5 mg Documented by: Pantoprazole Sodium (Protonix) 40 mg PO QAMAC [facility] Last Admin: 09/25/18 07:10 Dose: 40 mg Documented by: Potassium Chloride (Klor-Con) 40 meq PO DAILYP PRN PRN Reason: K+ < 3.5 Ropinirole HCl (Requip) 1 mg PO BID@0800,1200 [facility] Last Admin: 09/25/18 08:27 Dose: 1 mg Documented by: Ropinirole HCl (Requip) 2 mg PO HS [facility] Last Admin: 09/24/18 20:59 Dose: 2 mg Documented by: Senna/Docusate Sodium (Senna Plus Tablet) 1 tab PO HS [facility] Last Admin: 09/24/18 20:58 Dose: 1 tab Documented by: Sodium Chloride (Saline Flush) 10 ml IV Q8 [facility] Last Admin: 09/25/18 05:55 Dose: Not Given Documented by: Trazodone HCl (Desyrel) 50 mg PO HSP PRN PRN Reason: Insomnia Vancomycin HCl (Vancomycin Per Pharmacy) 1 order IV UD [facility] Medical - PN: A/P - Time Spent With Patient Total time spent is greater than 50% in coordination of care (as documented) at patient's floor/unit and/or counseling patient: 15 - 24 minutes (1) Septic joint of right elbow Status: Acute Assessment and plan: * Septic arthritis right elbow-status post aspiration/joint washout. Await Gram stain cultures and crystal evaluation. Continue vancomycin/cefazolin. ID consulted * Pain management stable on as needed opioids * Restless leg syndrome continue - ropinirole * Neuropathy stable on gabapentin * History of gout * Full code * Prophylaxis heparin Plan * Await microbiology/crystal * Antibiotic coverage for minimum 4-6 weeks * Prior medical condition management as above Current Visit: Yes Medical - PN: Qual - Stroke Symptom Onset Unknown: No - VTE Deep Vein Thrombosis/Pulmonary Embolism Present on Admission: No
[2018-09-25] MEDS ORDERED: VANCOMYCIN 1,000 MG in 0.9 % SODIUM CHLORIDE 250 ML IV SCH (10:00)
--- NOTE | 2018-09-25 14:21 | Infectious Disease Consult ---
History of Present Illness Patient information: Note initiated : 09/25/18 at 1:50 pm Service Date, if different from initiated Date: [] Patient: Carly Yadav 67 y/o F admitted on 09/24/18 for right arm pain, unable to straighten right arm. Chief Complaint: [] Consult date: 09/25/18 Requesting Physician: Cisco Will Reason for Consult: Right elbow septic arthritis Chief complaint: My elbow hurts History of present illness: 67 year old lady with PMHx of: - Restless leg syn - chronic smoking - COPD - brain aneurysm Gout Pt was admitted 09/24/18 with c/o sudden onset right elbow pain which started in the evening on 09/23/18 when she was taking her dogs out for a walk. Given the intensity of pain and swelling, she came to the ER. She denied any fever, chills, bites or scratches from her pets. At admission patient was afebrile, heart rate of 78, blood pressure 122/62, satting well on room air. WBC count was elevated at 11.7, on aspiration of synovial fluid from elbow joint there was about 7 cc of pus with a cell count of around 87,000 with 91% neutrophils. X-ray of the elbow significant for left elbow effusion on imaging. Patient was started on IV vancomycin and admitted to the hospital. Subsequently she underwent aspiration, incision and debridement of the left elbow joint by Dr. Mclaughlin [orthopedics] with operative cultures sent. In addition 2 sets of blood cultures were also sent and ceftriaxone was added to IV vancomycin. Patient's postop course was uneventful. At the time of visit today she reports pain in the elbow being variable, denies any fever, chills, diarrhea, nausea, vomiting. She expressed strong desire to get discharged and get well so that she could do bowling in next few weeks. Review of Systems All systems PM: reviewed and no additional remarkable complaints except as stated Past History Past medical history: See HPI Past family history: Lung cancer in sister Stomach cancer in mother Past social history: Lives by herself in [facility] Smoker On disability Medications and Allergies Home Medications Medication Instructions Recorded Confirmed Type Alendronate Sodium 70 mg PO WEEKLY 09/24/18 09/24/18 History Aspirin [Aspirin EC] 81 mg PO DAILY 09/24/18 09/24/18 History Atorvastatin Calcium 80 mg PO QHS 09/24/18 09/24/18 History Cyclobenzaprine [Flexeril] 10 mg PO HSP PRN 09/24/18 09/24/18 History Gabapentin [Neurontin] 300 mg PO HS 09/24/18 09/24/18 History [place]-3/Dha/Epa/Fish Oil [Fish Oil 1 cap PO DAILY 09/24/18 09/24/18 History 1,000 mg Softgel] Oxybutynin Chloride [Ditropan Xl] 5 mg PO BID 09/24/18 09/24/18 History Pantoprazole Sodium [Protonix] 40 mg PO DAILY 09/24/18 09/24/18 History Vitamin D3 2,000 unit PO DAILY 09/24/18 09/24/18 History amLODIPine [Norvasc] 10 mg PO HS 09/24/18 09/24/18 History rOPINIRole [Requip] 1 mg PO .COMPLEX 09/24/18 09/24/18 History Allergies Allergy/AdvReac Type Severity Reaction Status Date / Time bee venom protein (honey bee) Allergy Severe Anaphylaxis Verified 09/24/18 16:25 codeine Allergy Severe Anaphylaxis Verified 09/24/18 16:25 morphine Allergy Severe Anaphylaxis Verified 09/24/18 16:25 niacin Allergy Mild Rash Verified 09/24/18 16:25 penicillin V Allergy Mild RASH Verified 09/24/18 16:25 Tetanus Vaccines and Toxoid Allergy Mild HIVES Verified 09/24/18 16:25 [TETANUS] diazepam [From VALIUM] AdvReac Mild Vomiting Verified 09/24/18 16:25 influenza virus vaccine, AdvReac Mild "I GET THE Verified 09/24/18 16:25 specific FLU" [INFLUENZA VIRUS VACC,SPECIFIC] Physical Examination Vital signs: Temp Pulse Resp BP Pulse Ox 36.4 C 61 14 107/55 96 09/25/18 11:03 09/25/18 07:57 09/25/18 11:03 09/25/18 11:03 09/25/18 11:03 General appearance: no acute distress Eyes pulmonary: nonicteric ENT: other (Has some blisters on hard palate) Auscultation: bilateral: wheezes Cardiovascular: regular rate and rhythm Gastrointestinal: normoactive bowel sounds Musculoskeletal: other (Right elbow joint under dressing) Results - Laboratory Findings CBC and BMP: 09/25/18 05:05 09/25/18 05:05 Abnormal lab findings: Abnormal Labs 09/24/18 09/24/18 09/24/18 09:57 09:57 10:50 WBC 11.7 H RBC Hgb Hct Gran # 9.0 H Seg Neutrophils % Lymphocytes % ESR 23 H Carbon Dioxide BUN Calcium Phosphorus C-Reactive Protein C-React Prot High Sens 44.1 H Albumin Synovial Neutrophils 91 H 09/24/18 09/25/18 09/25/18 17:50 05:05 05:05 WBC 11.1 H RBC 3.73 L Hgb 10.9 L Hct 33.4 L Gran # Seg Neutrophils % 87 H Lymphocytes % 8 L ESR 21 H Carbon Dioxide 20 L BUN 7 L Calcium 8.1 L Phosphorus 2.5 L C-Reactive Protein 3.9 H 4.5 H C-React Prot High Sens Albumin 3.1 L Synovial Neutrophils Microbiology: Microbiology 09/24/18 10:50 Synovial Fluid Gram Stain - Final 09/24/18 10:50 Synovial Fluid Body Fluid Culture - Preliminary 09/25/18 10:50 Synovial Fluid - Elbow Gram Stain - Final 09/24/18 15:54 Elbow - Right Gram Stain - Final 09/24/18 15:54 Elbow - Right Anaerobic Culture - Final 09/24/18 15:54 Elbow - Right Gram Stain - Final 09/24/18 15:54 Elbow - Right Wound Culture - Final 09/24/18 10:50 Elbow - Right Gram Stain - Final 09/24/18 10:50 Elbow - Right Gram Stain - Final 09/24/18 10:50 Elbow - Right Anaerobic Culture - Final 09/24/18 10:50 Elbow - Right Gram Stain - Final 09/24/18 10:50 Elbow - Right Wound Culture - Final Assessment and Plan - Narrative A/P Narrative: Assessment: 1. Right elbow septic arthritis: Synovial fluid cultures from initial aspiration and subsequent on surgery negative so far, Gram stain also negative 2. No sepsis 3. Chronic smoker 4. Pseudogout: Based on finding of calcium pyrophosphate crystals in the left elbow joint Recommendations: Continue IV vancomycin per pharmacy assisted dosing, and IV cefazolin 2 g every 8 hours - If blood and synovial cultures stay negative, will come up with plan to do PO Linezolid 600 mg q12 hrs x 4 weeks. Flexeril (one of the home medicine) and Trazodone (one of the inpatient medicine) interact with Linezolid and raises risk of serotonin syndrome. Pt is agreeable to stop both of them. - I will stop both Flexeril (elimination half-life of 18 hrs) and Trazodone (half-life 7 hrs) so that they are out of her system by tomorrow as it was last administered last night at 9 pm. - Pt counselled about smoking cessation but she wants to think about it for now - Pt doesnot want a flu shot despite counselling. - Pseudogout management per Ortho will follow Luis Fernando Marie MD Infectious diseases
[2018-09-25] MEDS: 0.9 % SODIUM CHLORIDE 1,000 ML IV SCH ×2 (15:54→18:34)
[2018-09-25] MEDS: HEPARIN 5,000 UNIT/ML VIAL SQ SCH (21:20)
[2018-09-25] MEDS: GABAPENTIN 300 MG CAPSULE PO SCH (21:22)
[2018-09-25] MEDS: SENNOSIDES/DOCUSATE SODIUM 1 TAB TABLET PO SCH (21:22)
[2018-09-25] MEDS: ATORVASTATIN 20 MG TABLET PO SCH (21:27)
[2018-09-26] MEDS: ACETAMINOPHEN 325 MG TABLET PO PRN (01:41)
[2018-09-26] MEDS: oxyCODONE HCL 5 MG TABLET PO PRN (01:42)
[2018-09-26] MEDS: 0.9 % SODIUM CHLORIDE 10 ML SYRINGE IV SCH (05:12)
[2018-09-26] MEDS: ceFAZolin 1 GM VIAL IV SCH (05:22)
[2018-09-26 05:45] LABS: Mean Cell Volume 89.4 fL (80.0-100.0); Mean Corpuscular HGB Conc 32.8 g/dL (31.0-36.0); Platelet Count 149 K/mcL (140-440); Red Cell Distribution Width 13.9 % (11.5-14.5)
[2018-09-26 06:31] LABS: ALT/SGPT 10 U/l (0-40); Albumin 3.1 gm/dL (3.2-5.2); Albumin/Globulin Ratio 1.1 (1.0-2.3); Alkaline Phosphatase 85 U/L (39-117); Bilirubin,Direct < 0.2 mg/dL (0.0-0.3); Blood Urea Nitrogen 6 mg/dl (8-23); Gamma Glutamyl Transpeptidase 28 U/L (5-36); Uric Acid 3.9 mg/dL (2.5-8.0)
[2018-09-26] MEDS: PANTOPRAZOLE 40 MG TABLET PO SCH (07:11)
[2018-09-26] MEDS: rOPINIRole 1 MG TABLET PO SCH ×2 (07:14→11:43)
--- NOTE | 2018-09-26 07:57 | Orthopedic Progress Note ---
Orthopedics - Auxillary Note - Subjective Patient Information: Note initiated : 09/26/18 at 7:55 am Service Date, if different from initiated Date: [] Patient: Carly Yadav 67 y/o F admitted on 09/24/18 for right arm pain, unable to straighten right arm. Chief Complaint: No c/o. Pt wanting to discharge to home [facility]. bandages c/d/i. Incision well approximated, no erythema or drainage. Drain pulled yesterday. nvi-distal Vital Signs Temp Pulse Resp BP Pulse Ox 09/26/18 07:00 98.0 F 63 16 96/50 97 09/26/18 03:10 98.0 F 63 20 123/57 97 09/25/18 23:25 98.8 F 64 20 116/59 97 09/25/18 19:49 98.4 F 66 24 H 125/66 97 09/25/18 15:00 98.0 F 90 102/50 94 09/25/18 11:03 97.5 F 14 107/55 96 09/25/18 07:57 98.6 F 61 14 97/60 94 Intake and Output 09/25/18 09/26/18 09/26/18 21:59 05:59 13:59 Intake Total 1600 100 180 Output Total 950 400 Balance 650 -300 180 Intake: IV 1000 Sodium Chloride 0.9% 1,000 ml @ 1000 50 mls/hr IV .Q20H [facility] Rx#: [id number] Oral 600 100 180 Output: Void Amount 950 400 Other: Meal Dinner Percent of Meal Consumed 95 Feeding Ability Independent Urine Appearance Clear Urine Color Straw Urine Odor Normal Weight 126 lb Laboratory Results - last 24 hr 09/25/18 09/26/18 09/26/18 05:05 04:42 04:42 WBC 8.6 RBC 3.40 L Hgb 10.0 L Hct 30.4 L MCV 89.4 MCH 29.3 MCHC 32.8 RDW 13.9 Plt Count 149 MPV 9.3 Total Counted 100 Seg Neutrophils % 87 H Band Neutrophils % 2 Not Reportable Lymphocytes % 8 L Monocytes % (Manual) 3 Platelet Estimate Normal RBC Morphology Normal Sodium 141 Potassium 3.5 Chloride 110 H Carbon Dioxide 24 Anion Gap 7.0 L BUN 6 L Creatinine 0.7 GFR Calculation 90 Glucose 104 Uric Acid 3.9 Calcium 8.7 Phosphorus 2.1 L Magnesium 1.7 Total Bilirubin 0.2 Direct Bilirubin < 0.2 GGT 28 AST 16 ALT 10 Alkaline Phosphatase 85 Lactate Dehydrogenase 153 Total Protein 6.0 Albumin 3.1 L Globulin 2.9 Albumin/Globulin Ratio 1.1 Triglycerides 57 s/p R elbow I&D-stable cont management per hospitalist. f/u ortho 2 weeks.
[2018-09-26] MEDS: ASPIRIN 81 MG TAB.CHEW PO SCH (08:19)
[2018-09-26] MEDS: MULTIVIT,THER IRON,CA,FA & MIN 1 TABLET PO SCH (08:19)
[2018-09-26] MEDS: DOCUSATE SODIUM 100 MG CAPSULE PO SCH (08:19)
[2018-09-26] MEDS: OXYBUTYNIN CHLORIDE 5 MG TAB.XL.24H PO SCH (08:19)
[2018-09-26] MEDS: HEPARIN 5,000 UNIT/ML VIAL SQ SCH (08:20)
[2018-09-26] MEDS: amLODIPine 10 MG TABLET PO SCH (08:21)
[2018-09-26] MEDS ORDERED: LINEZOLID 600 MG TABLET PO SCH (09:00)
[2018-09-26 09:31] LABS: Band Neutrophils % 1 % (0-10); Eosinophils % (Manual) 1 % (0-7); Lymphocytes % 24 % (15-49); Monocytes % (Manual) 8 % (1-12); Platelet Estimate NORMAL (NORMAL); RBC Morphology NORMAL (NORMAL); Segmented Neutrophils % 66 % (38-78)
--- NOTE | 2018-09-26 09:31 | Infectious Disease Prog Note ---
Subjective Patient information: Note initiated : 09/26/18 at 9:27 am Service Date, if different from initiated Date: [] Patient: Carly Yadav 67 y/o F admitted on 09/24/18 for right arm pain, unable to straighten right arm. Chief Complaint: [] Interval history: Pt is doing well. Reports constipation. Denied any fever, chills, n/v. Rt elbow pain controlled with pain meds. Objective Objective Narrative: ao x 3, in nad no thrush, has a single superficial burn over the hard palate chest cta s1 s2 normal, has a 2/6 mid systolic murmur over Lt and rt 2nd intercostal space bs ++, nttd no edema Rt elbow: incision looks clean, no drainage, tender and warm to touch, no redness - Vital Signs Vital signs: Vital Signs Temp Pulse Resp BP Pulse Ox 09/26/18 07:00 36.7 C 63 16 96/50 97 09/26/18 03:10 36.7 C 63 20 123/57 97 09/25/18 23:25 37.1 C 64 20 116/59 97 09/25/18 19:49 36.9 C 66 24 H 125/66 97 09/25/18 15:00 36.7 C 90 102/50 94 09/25/18 11:03 36.4 C 14 107/55 96 Intake and Output 09/25/18 09/26/18 09/26/18 21:59 05:59 13:59 Intake Total 1600 100 180 Output Total 950 400 Balance 650 -300 180 Intake: IV 1000 Sodium Chloride 0.9% 1,000 ml @ 1000 50 mls/hr IV .Q20H [facility] Rx#: [id number] Oral 600 100 180 Output: Void Amount 950 400 Other: Meal Dinner Breakfast Percent of Meal Consumed 95 80 Feeding Ability Independent Urine Appearance Clear Urine Color Straw Urine Odor Normal Weight 57.153 kg Intake & Output: Intake & Output 09/25/18 09/26/18 09/26/18 21:59 05:59 13:59 Intake Total 1600 100 180 Output Total 950 400 Balance 650 -300 180 Weight 57.153 kg Intake: IV 1000 Sodium Chloride 0.9% 1,000 ml @ 1000 50 mls/hr IV .Q20H [facility] Rx#: [id number] Oral 600 100 180 Output: Void Amount 950 400 Other: Meal Dinner Breakfast Percent of Meal Consumed 95 80 Feeding Ability Independent Urine Appearance Clear Urine Color Straw Urine Odor Normal - Lab 09/26/18 04:42 09/26/18 04:42 Most recent lab results Calcium 8.7 mg/dl (8.6-10.4) 09/26/18 04:42 Phosphorus 2.1 mg/dL (2.7-4.5) L 09/26/18 04:42 Magnesium 1.7 mg/dL (1.6-2.5) 09/26/18 04:42 Microbiology 09/24/18 18:20 Blood Blood Culture - Preliminary 09/24/18 18:15 Blood Blood Culture - Preliminary 09/24/18 10:50 Synovial Fluid Gram Stain - Final 09/24/18 10:50 Synovial Fluid Body Fluid Culture - Preliminary 09/25/18 10:50 Synovial Fluid - Elbow Gram Stain - Final 09/24/18 15:54 Elbow - Right Gram Stain - Final 09/24/18 15:54 Elbow - Right Anaerobic Culture - Final 09/24/18 15:54 Elbow - Right Gram Stain - Final 09/24/18 15:54 Elbow - Right Wound Culture - Final 09/24/18 10:50 Elbow - Right Gram Stain - Final 09/24/18 10:50 Elbow - Right Gram Stain - Final 09/24/18 10:50 Elbow - Right Anaerobic Culture - Final 09/24/18 10:50 Elbow - Right Gram Stain - Final 09/24/18 10:50 Elbow - Right Wound Culture - Final Medications Active Medications: Acetaminophen (Tylenol) 650 mg PO Q4-6HP PRN PRN Reason: PAIN/FEVER > 101 Last Admin: 09/26/18 01:41 Dose: 650 mg Documented by: Admin: 09/25/18 18:40 Dose: 650 mg Documented by: Admin: 09/25/18 12:19 Dose: 650 mg Documented by: Admin: 09/25/18 05:52 Dose: 650 mg Documented by: Admin: 09/25/18 02:11 Dose: 650 mg Documented by: Admin: 09/24/18 21:58 Dose: 650 mg Documented by: MARGARETTE Alendronate Sodium (Fosamax) 70 mg PO WEEKLY [facility] Amlodipine Besylate (Norvasc) 10 mg PO DAILY [facility] Last Admin: 09/26/18 08:21 Dose: Not Given Documented by: F Non-Admin Reason: Decreased Blood Pressure Admin: 09/25/18 08:28 Dose: 10 mg Documented by: JUSTIN Aspirin (Aspirin) 81 mg PO DAILY [facility] Last Admin: 09/26/18 08:19 Dose: 81 mg Documented by: Admin: 09/25/18 08:28 Dose: 81 mg Documented by: JUSTIN Atorvastatin Calcium (Lipitor) 80 mg PO [facility] Last Admin: 09/25/18 21:27 Dose: 80 mg Documented by: Admin: 09/24/18 20:58 Dose: 80 mg Documented by: MARGARETTE Docusate Sodium (Colace) 100 mg PO BID [facility] Last Admin: 09/26/18 08:19 Dose: 100 mg Documented by: Admin: 09/25/18 21:22 Dose: 100 mg Documented by: Admin: 09/25/18 08:27 Dose: 100 mg Documented by: Saw Admin: 09/24/18 20:58 Dose: 100 mg Documented by: MARGARETTE Gabapentin (Neurontin) 300 mg PO [facility] Last Admin: 09/25/18 21:22 Dose: 300 mg Documented by: Admin: 09/24/18 20:59 Dose: 300 mg Documented by: MARGARETTE Heparin Sodium (Porcine) (Heparin) 5,000 unit SQ Q12 [facility] Last Admin: 09/26/18 08:20 Dose: Not Given Documented by: JUSTIN Non-Admin Reason: Patient Refused Admin: 09/25/18 21:20 Dose: Not Given Documented by: RACHELOSSERT Non-Admin Reason: Patient Refused Hydromorphone HCl (Dilaudid) 0 mg IV Q4HP PRN PRN Reason: PAIN LEVEL > 6 Sodium Chloride (Sodium Chloride 0.9%) 1,000 mls @ 50 mls/hr IV .Q20H [facility] Stop: 09/27/18 05:29 Last Admin: 09/25/18 18:34 Dose: 50 mls/hr Documented by: Infusion: 09/25/18 17:55 Dose: 50 mls/hr Documented by: Admin: 09/25/18 15:54 Dose: Not Given Documented by: F Non-Admin Reason: Bag Still Infusing Admin: 09/24/18 21:55 Dose: 50 mls/hr Documented by: Admin: 09/24/18 20:09 Dose: Not Given Documented by: MARGARETTE Non-Admin Reason: infusing Acetaminophen (Ofirmev) 1,000 mg in 100 mls @ 200 mls/hr IV Q6HP PRN PRN Reason: PAIN/FEVER > 101 Iron Carb/Multivit/Dickson/Folic Acid (Multivitamin W/Minerals) 1 tab PO DAILY [facility] Admin: 09/26/18 08:19 Dose: 1 tab Documented by: Admin: 09/25/18 08:28 Dose: 1 tab Documented by: JUSTIN Linezolid (Zyvox) 600 mg PO Q12 [facility] Ondansetron HCl (Zofran) 4 mg IV Q4-6HP PRN PRN Reason: Nausea And Vomiting Oxybutynin Chloride (Ditropan Xl) 5 mg PO BID [facility] Admin: 09/26/18 08:19 Dose: 5 mg Documented by: Admin: 09/25/18 21:22 Dose: 5 mg Documented by: Admin: 09/25/18 08:28 Dose: 5 mg Documented by: Admin: 09/24/18 20:59 Dose: 5 mg Documented by: MARGARETTE Oxycodone HCl (Roxicodone) 5 mg PO Q4HP PRN PRN Reason: Pain Last Admin: 09/26/18 01:42 Dose: 5 mg Documented by: Admin: 09/25/18 18:40 Dose: 5 mg Documented by: Admin: 09/25/18 12:18 Dose: 5 mg Documented by: Admin: 09/25/18 05:52 Dose: 5 mg Documented by: Admin: 09/25/18 02:11 Dose: 5 mg Documented by: Admin: 09/24/18 20:59 Dose: 5 mg Documented by: MARGARETTE Pantoprazole Sodium (Protonix) 40 mg PO QAMAC [facility] Admin: 09/26/18 07:11 Dose: 40 mg Documented by: Admin: 09/25/18 07:10 Dose: 40 mg Documented by: JUSTIN Potassium Chloride (Klor-Con) 40 meq PO DAILYP PRN PRN Reason: K+ < 3.5 Ropinirole HCl (Requip) 1 mg PO BID@0800,1200 [facility] Last Admin: 09/26/18 07:14 Dose: 1 mg Documented by: Admin: 09/25/18 12:15 Dose: 1 mg Documented by: Admin: 09/25/18 08:27 Dose: 1 mg Documented by: JUSTIN Ropinirole HCl (Requip) 2 mg PO [facility] Last Admin: 09/25/18 21:22 Dose: 2 mg Documented by: Admin: 09/24/18 20:59 Dose: 2 mg Documented by: MARGARETTE Senna/Docusate Sodium (Senna Plus Tablet) 1 tab PO [facility] Last Admin: 09/25/18 21:22 Dose: 1 tab Documented by: Admin: 09/24/18 20:58 Dose: 1 tab Documented by: MARGARETTE Sodium Chloride (Saline Flush) 10 ml IV Q8 [facility] Last Admin: 09/26/18 05:12 Dose: Not Given Documented by: LELORT Non-Admin Reason: Continuous IV Admin: 09/25/18 21:36 Dose: Not Given Documented by: LELORT Non-Admin Reason: Continuous IV Admin: 09/25/18 13:50 Dose: Not Given Documented by: JUSTIN Non-Admin Reason: Continuous IV Admin: 09/25/18 05:55 Dose: Not Given Documented by: MARGARETTE Non-Admin Reason: Continuous IV Admin: 09/24/18 21:00 Dose: Not Given Documented by: MARGARETTE Non-Admin Reason: Continuous IV Admin: 09/24/18 20:09 Dose: Not Given Documented by: PALMIR[place]ARIE Non-Admin Reason: Continuous IV Assessment and Plan - Narrative A/P Narrative: Assessment: 1. Right elbow septic arthritis: Synovial fluid cultures from initial aspiration and subsequent on surgery negative so far, Gram stain also negative - POD 2 2. No sepsis 3. Chronic smoker 4. Pseudogout: Based on finding of calcium pyrophosphate crystals in the left elbow joint Recommendations: Stop IV vancomycin and IV cefazolin - Start PO Linezolid 600 mg q12 hrs x 4 weeks with a stop date of 10/23/18. Pt counselled about side-effects - Pseudogout management per Ortho - ID follow-up appt at 3 pm on 10/21/18 Follow-up labs: CBC every 2 weeks Fax lab results to [phone] Luis Fernando Marie MD Infectious diseases
--- NOTE | 2018-09-26 09:35 | Discharge Summary ---
Medical - DS: Prov Patient information: Note initiated : 09/26/18 at 9:33 am Service Date, if different from initiated Date: [] Patient: Carly Yadav 67 y/o F admitted on 09/24/18 for right arm pain, unable to straighten right arm. Chief Complaint: [] Date of admission: 09/24/18 17:01 Discharge date: 09/26/18 Primary care physician: Casey Pete Consults: 09/24/18 13:03 Consult to Physician [CONS] Stat Comment: Consulting Provider: Myron Mclaughlin Reason For Exam: Physician to Consult 09/24/18 13:08 Consult to Physician [CONS] Stat Comment: Consulting Provider: Cisco Will Reason For Exam: Physician to Consult 09/24/18 17:30 Consult to Physician [CONS] Routine Comment: Consulting Provider: Luis Fernando Marie Reason For Exam: Physician to Consult Medical - DS: Meds - Discharge Medications Prescriptions: Linezolid [Zyvox] 600 mg PO Q12 #60 tablet Active and Home Medications: Home Medications Alendronate Sodium 70 mg PO WEEKLY 09/24/18 [History Confirmed 09/24/18 Last Taken 09/14/18] Aspirin [Aspirin EC] 81 mg PO DAILY 09/24/18 [History Confirmed 09/24/18 Last Taken 09/24/18] Atorvastatin Calcium 80 mg PO QHS 09/24/18 [History Confirmed 09/24/18 Last Taken 09/23/18] Gabapentin [Neurontin] 300 mg PO HS 09/24/18 [History Confirmed 09/24/18 Last Taken 09/14/18] Sloan-3/Dha/Epa/Fish Oil [Fish Oil 1,000 mg Softgel] 1 cap PO DAILY 09/24/18 [History Confirmed 09/24/18 Last Taken 09/24/18] Oxybutynin Chloride [Ditropan Xl] 5 mg PO BID 09/24/18 [History Confirmed 09/24/18 Last Taken 09/24/18] Pantoprazole Sodium [Protonix] 40 mg PO DAILY 09/24/18 [History Confirmed 09/24/18 Last Taken 09/24/18] Vitamin D3 2,000 unit PO DAILY 09/24/18 [History Confirmed 09/24/18 Last Taken 09/23/18] amLODIPine [Norvasc] 10 mg PO HS 09/24/18 [History Confirmed 09/24/18 Last Taken 09/23/18] rOPINIRole [Requip] 1 mg PO .COMPLEX 09/24/18 [History Confirmed 09/24/18 Last Taken Unknown] Linezolid [Zyvox] 600 mg PO Q12 #60 tablet 09/26/18 [Rx Last Taken Unknown] Medical - DS: Hosp Hospital course: Discharge diagnosis * Septic arthritis right elbow-status post aspiration/joint washout. Cultures negative so far. Continue Zyvox for 4 weeks as per ID recommendations. Discharge home with advised to follow-up with ID and repeat blood checks as per ID recommendations in 2 weeks. * Pain management -well managed on opioids * Restless leg syndrome continue - ropinirole * Neuropathy stable on gabapentin * History of gout Brief hospital course Ms. Yadav is a 67 year old F who presents to [facility] ER with worsening right elbow swelling and pain that started since last evening. Patient denies any recent injury, fall. She carries a history of gout. Patient has 4 dogs and cat but denies any recent scratching or bite. The redness and swelling rapidly evolved overnight prompting her to come to the ER. Initial workup was significant for left elbow effusion on imaging. Purulent aspirate was obtained. Subsequently orthopedics was consulted for joint washout in light of septic arthritis right elbow. Hospitalist service was consulted for management of antibiotics and assist in admission. Patient will be taken directly to the OR Patient was seen postoperatively after joint washout on the medical floor. She denies active distress including chest pain shortness of breath, headache photophobia joint pain. She denies prior similar events are recurrent boils or MRSA infection. She lives with her boyfriend. 09/25-patient doing well postoperatively. Right elbow dressing in place. No overnight events including fever chills or worsening pain. Microbiology cultures negative so far. On empiric vancomycin/cefazolin as per orthopedics. Await ID recommendations. 09/26-patient doing well. Cultures negative so far. Per infectious disease recommendations continue Zyvox for 4 weeks p.o. Patient being discharged as per ID recommendations with advised to follow-up with orthopedics. No overnight fever chills or concerns per staff. Discharge diagnosis: . - Time Spent with Patient Total time spent providing and/or coordinating discharge services: Greater than 30 minutes Medical - DS: Exam - Constitutional Vitals: Vital Signs Temp Pulse Resp BP Pulse Ox 09/26/18 07:00 98.0 F 63 16 96/50 97 09/26/18 03:10 98.0 F 63 20 123/57 97 09/25/18 23:25 98.8 F 64 20 116/59 97 09/25/18 19:49 98.4 F 66 24 H 125/66 97 09/25/18 15:00 98.0 F 90 102/50 94 09/25/18 11:03 97.5 F 14 107/55 96 Intake and Output 09/25/18 09/26/18 09/26/18 21:59 05:59 13:59 Intake Total 1600 100 180 Output Total 950 400 Balance 650 -300 180 Intake: IV 1000 Sodium Chloride 0.9% 1,000 ml @ 1000 50 mls/hr IV .Q20H [facility] Rx#: [id number] Oral 600 100 180 Output: Void Amount 950 400 Other: Meal Dinner Breakfast Percent of Meal Consumed 95 80 Feeding Ability Independent Urine Appearance Clear Urine Color Straw Urine Odor Normal Weight 126 lb Medical - DS: Data Labs on day of discharge: Labs from last 24 hours 09/26/18 09/26/18 09/26/18 09:08 04:42 04:42 WBC 8.6 RBC 3.40 L Hgb 10.0 L Hct 30.4 L MCV 89.4 MCH 29.3 MCHC 32.8 RDW 13.9 Plt Count 149 MPV 9.3 Total Counted 100 Seg Neutrophils % 66 Band Neutrophils % 1 Lymphocytes % 24 Monocytes % (Manual) 8 Eosinophils % (Manual) 1 Platelet Estimate Normal RBC Morphology Normal Sodium 141 Potassium 3.5 Chloride 110 H Carbon Dioxide 24 Anion Gap 7.0 L BUN 6 L Creatinine 0.7 GFR Calculation 90 Glucose 104 Uric Acid 3.9 Calcium 8.7 Phosphorus 2.1 L Magnesium 1.7 Total Bilirubin 0.2 Direct Bilirubin < 0.2 GGT 28 AST 16 ALT 10 Alkaline Phosphatase 85 Lactate Dehydrogenase 153 Total Protein 6.0 Albumin 3.1 L Globulin 2.9 Albumin/Globulin Ratio 1.1 Triglycerides 57 Vancomycin Trough Pending Preliminary micro results at discharge 09/24/18 18:20 Blood Culture - Preliminary Blood 09/24/18 18:15 Blood Culture - Preliminary Blood 09/24/18 10:50 Body Fluid Culture - Preliminary Synovial Fluid Medical - DS: A/P - Patient/Caregiver Discharge Instructions Activity: increase activity as tolerated Diet: Regular Diet Additional Instructions: Daily dry dressing changes to right elbow. No weight bearing with right arm/hand. Follow-up with infectious disease specialist as advised. Continue p.o. Zyvox 600 twice daily for 4 weeks. Avoid Flexeril/trazodone due to high risk for serotonin syndrome Follow-up orthopedics as advised All meals on chair sitting upright at 90 degrees to prevent aspiration Return to ER if worsening fever chills shortness of breath, diarrhea, bleeding Review risk and side effect profile of medications including antibiotics. Side effect may include mild to severe reaction including rash, diarrhea, cdiff and even which can be prevented by close follow-up with PCP and monitoring for side effects Refrain from smoking Continue diet and activity as advised Discussed importance of medication adherence Please review medication list with patient prior to discharge Please schedule follow-up with PCP/Providers prior to discharge and provide kate ntouts Prescriptions: Linezolid [Zyvox] 600 mg PO Q12 #60 tablet - Problem Maintenance (1) Septic joint of right elbow Status: Acute - Follow up Plan Follow up with: Ross Jain PA-C [[facility] [employer]] - 10/07/18 9:40 am (check in at 9:20 am for appointment.) Casey Pete MD [Primary Care Provider] - Disposition: Home, Self-Care Prognosis: Fair Rehab Potential: Fair I certify that the patient requires SNF services: No Overall status at discharge: patient is back to baseline Medical - DS: Qual - VTE Deep Vein Thrombosis/Pulmonary Embolism Present on Admission: No
[2018-09-26] MEDS: 0.9 % SODIUM CHLORIDE 1,000 ML IV SCH (11:33)
[2018-09-30] MEDS ORDERED: ALENDRONATE SODIUM 70 MG TABLET PO SCH (09:00)
== END 2018-09-26 13:05 | disposition home or self-care (01) | DRG 508 ==
LOC: ED 09:19 → SUR 14:47 → MEDSUR 17:01
PROVIDERS: ADMIT Internal Medicine; ATTEND Internal Medicine